=== PATIENT | female | born 1965 | race Asian ===

== ENCOUNTER 2020-11-09 08:36 | Outpatient (CLI) | payer BC | END 2020-11-09 08:37 | disposition home or self-care (01) | LOC: CSHMAMMO 08:36 | PROVIDERS: ATTEND Family Medicine | DX: Z12.31 Encounter for screening mammogram for malignant neoplasm of breast (principal); M85.80 Other specified disorders of bone density and structure, unspecified site | CPT/HCPCS: 77063; 77067; 77080 ==